=== PATIENT | male | born 1930 | race African-American/Black ===

== ENCOUNTER → 2017-12-11 | Day surgery (SDC) | payer MEDICARE ==
[2017-12-08 11:51] VITALS: BMI 24.2
[~2017-12-11] MED LIST: Lidocaine 1% PF 5 ML VIAL ONE; PROPOFOL 200 MG/20 ML VIAL ONE; Propofol 1,000 MG/100 ML VIAL IV ONE
[2017-12-11 10:19] LABS: #Eosinphils 0.1 thou/uL (0.0-0.7); #Lymphocytes 0.7 thou/uL (1.20-3.40); #Monocytes 0.7 thou/uL (0.11-0.59); #Neutrophils 4.6 thou/uL (1.40-6.50); %Basophils 0.4 % (0.0-1.0); %Eosinophils 1.4 % (0.0-10.0); %Monocytes 11.2 % (0.0-10.0); Hemoglobin 9.5 g/dL (14.0-18.0); INR-International Normal Ratio 1.3; Mean Corpuscular Hemoglobin 32.8 pg (27.0-31.0); Mean Platelet Volume 8.5 fL (7.4-10.4); PTT 32.2 SEC (22.9-36.1); Platelet Count 121 thou/uL (130-400); Prothrombin Time 15.8 SEC (12.0-14.7); RBC Distribution Width 13.6 % (11.5-14.5); Red Blood Cell (RBC) Count 2.88 mill/uL (4.70-6.10); White Blood Cell (WBC) Count 6.2 thou/uL (4.8-10.8)
[2017-12-11 10:42] LABS: Anion Gap 12 mmol/L (10-20); BUN (Urea Nitrogen) 17 mg/dL (8.4-25.7); Calc. Creatinine Clearance 40 mL/min (70-130); Calcium 8.7 mg/dL (7.8-10.44); Carbon Dioxide 22 mmol/L (23-31); Chloride 107 mmol/L (98-107); Estimated GFR-MDRD 62; Glucose 91 mg/dL (83-110); Potassium 4.2 mmol/L (3.5-5.1); Sodium 137 mmol/L (136-145)
[2017-12-11 11:21] LABS: PLT Morphology Comment Appears Decreased
--- NOTE | 2017-12-12 22:47 | ECHO ---
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 He underwent SANTIAGO prior to planned cardioversion. PROCEDURE: The patient received propofol by Anesthesia specialist. After adequate sedation achieved, the standa rd transesophageal echocardiogram probe was gently passed into the esophagus. We were able to pass th e epiglottis level, but we were not able to cannulate the esophagus. Multiple attempts were made. E ventually the SANTIAGO was canceled. PLAN: At this point, I would refrain from further SANTIAGO. On the other hand, anticoagulation has not been star carole by the patient. No cardioversion can be made. Consider cardioversion after adequate anticoagulat ion is performed or continue rate controlling strategy.
== END ==
LOC: CCL 09:27
PROVIDERS: ATTEND Internal Medicine Cardiovascular Disease
DX: I48.91 Unspecified atrial fibrillation (principal); I48.92 Unspecified atrial flutter; I11.0 Hypertensive heart disease with heart failure; I50.22 Chronic systolic (congestive) heart failure; I25.10 Atherosclerotic heart disease of native coronary artery without angina pectoris; E11.9 Type 2 diabetes mellitus without complications; I44.2 Atrioventricular block, complete; I25.5 Ischemic cardiomyopathy; Z79.899 Other long term (current) drug therapy; Z53.8 Procedure and treatment not carried out for other reasons; Z95.810 Presence of automatic (implantable) cardiac defibrillator
CPT/HCPCS: 36415; 80048; 85025; 85610; 85730; 92960; 93005; 93010; 93312; J2001; J2704